=== PATIENT | female | born 1985 | race Caucasian/White ===

== ENCOUNTER 2019-08-14 10:28 | Outpatient (RCR) | payer BC, SELFPAY ==
--- NOTE | ~2019-08-14 | US_ITS ---
EXAMINATION: US OB follow up EXAM DATE: 08/14/2019 11:42 INDICATION: EDC tomorrow. Nonreactive stress test. Third trimester. TECHNIQUE: Pelvic obstetrical transabdominal sonogram was performed by a technologist. There are mu ltiple grayscale and Doppler images available for interpretation. There are no earlier studies of th is gestation for comparison. FINDINGS: There is a single fetus identified in vertex presentation with a heart rate of 163 beats pe r minute. The placenta is located in the posterior position. There is no sonographic evidence of ret roplacental hemorrhage identified. The amniotic fluid index is 9.7 centimeters, which is normal. BIOMETRIC DATA: Biparietal diameter (BPD): 9.5cm ----------------> 38 weeks 6 days. Head circumference (HC): 34.8 cm ----------------> 40 weeks 2 days. Abdominal circumference (AC): 31.8 cm ----------> 35 weeks 5 days. Femur length (FL): 7.5 cm --------------------------> 38 weeks 3 days. These measurements are discordant, HC/AC ratio is elevated. HC/AC ratio is 1.09 (The 5th -- 95th percentile range is 0.89-1.06. Estimated weight is 3169 g +/- 475 g. This is the 18th percentile when the currently reported clinical gestation age 39 weeks 6 days, clinical estimated date of delivery (EMMA-OPE) 08/15 is used. Fe maricruz estimated gestational age based on measurements from this exam is 38 weeks 2 days, with an estima ulises date of delivery (EMMA-AUA) 08/26. IMPRESSION: 1. Single fetus in vertex presentation with heart rate 163 beats per minute. 2. Estimated weight of 3169 grams, 18th percentile using the currently reported clinical gesta tion age of 39 weeks 6 days, EMMA(OPE) 2. 3. Normal amniotic fluid index 9.7 cm. 4. Elevated HC/AC ratio. Reviewed, dictated and finalized at location A. SCAPER IMPRESSION: 1. Single fetus in vertex presentation with heart rate 163 beats per minute. 2. Estimated weight of 3169 grams, 18th percentile using the currently r eported clinical gestation age of 39 weeks 6 days, EMMA(OPE) 2/4. 3. Normal amniotic fluid index 9.7 cm. 4. Elevated HC/AC ratio.
[2019-08-14 11:16] VITALS: BP 108/64; PULSE 71
--- NOTE | 2019-08-14 12:00 | PC.NURSE ---
Called Dr. Hensley with ultrasound report. Informed of reactive tracing with occasional contractions. November D/C home.
== END 2019-08-23 07:38 | disposition home or self-care (01) ==
LOC: ANHOBOP 10:28
PROVIDERS: PCP Family Medicine; Visit Provider Obstetrics & Gynecology
DX: O26.893 Other specified pregnancy related conditions, third trimester (principal); Z3A.39 39 weeks gestation of pregnancy
CPT/HCPCS: 59025; 76816

== ENCOUNTER 2019-08-22 17:57 | Inpatient (IN) | payer BC, SELFPAY ==
[2019-08-22 18:52] LABS: Basophils Percent Auto 0.5 % (0.2-1.2); Eosinophils Absolute Auto 0.1 K/mm3 (0-0.3); Eosinophils Percent Auto 1.3 % (0-4.4); Hematocrit 34.9 % (37.0-47.0); Hemoglobin 11.8 g/dL (12.0-15.0); Immature Granulocyte Absolute 0.01 K/mm3 (0.00-0.031); Immature Granulocyte Percent A 0.1 % (0-0.5); Lymphocytes Absolute Auto 2.24 K/mm3 (0.9-3.2); Lymphocytes Percent Auto 30.2 % (18.3-44.2); Mean Corpuscular HGB Conc 33.8 g/dl (32-36); Mean Corpuscular Hemoglobin 31.3 pg (26-34); Mean Corpuscular Volume 92.6 fl (80-100); Mean Platelet Volume 10.4 fl (7.4-10.4); Monocytes Absolute Auto 0.6 K/mm3 (0.1-0.6); Monocytes Percent Auto 7.4 % (2.6-8.5); Neutrophils Absolute Auto 4.5 K/mm3 (1.3-6.7); Neutrophils Percent Auto 60.5 % (45.5-73.1); Platelet Count Result 277 k/mm3 (150-375); Red Blood Count 3.77 M/mm3 (4.2-5.4); Red Cell Distribution Width 13.9 % (11.5-14.5); White Blood Count 7.4 K/mm3 (4.5-10.0)
[2019-08-22 19:00] VITALS: TEMP 37.1
[2019-08-22] MEDS: DINOPROSTONE 10 MG VAG INSERT VAGINAL (19:03)
[2019-08-22 19:04] VITALS: BP 122/58; PULSE 74
--- NOTE | 2019-08-22 19:04 | WPDANESEPP ---
Anes - Eval Pre Procedure Date/Time: 08/22/19 19:04 Pre Op Diagnosis: Induction of labor Patient Data Age: 34 Gender: F Height: Weight: Last Vital Signs Pulse 74 08/22/19 19:04 BP 122/58 L 08/22/19 19:04 Allergies Allergy/AdvReac Type Severity Reaction Status Date / Time amoxicillin Allergy Unknown Unknown Verified 07/17/19 16:04 cat dander Allergy Unknown Other Verified 07/17/19 16:03 dog dander Allergy Unknown Other Verified 07/17/19 16:03 SEAFOOD Allergy Unknown Unknown Uncoded 07/17/19 16:03 Home Medications Medication Instructions Recorded Confirmed Type PNV cmb#95-ferrous fumarate-FA 1 tablet PO DAILY 07/17/19 07/17/19 History [] Laboratory Tests 08/22/19 08/22/19 18:46 18:46 WBC 7.4 K/mm3 K/mm3 (4.5-10.0) RBC 3.77 M/mm3 L M/mm3 (4.2-5.4) Hgb 11.8 g/dL L g/dL (12.0-15.0) Hct 34.9 % L % (37.0-47.0) MCV 92.6 fl fl (80-100) MCH 31.3 pg pg (26-34) MCHC 33.8 g/dl g/dl (32-36) RDW 13.9 % % (11.5-14.5) Plt Count 277 k/mm3 k/mm3 (150-375) MPV 10.4 fl fl (7.4-10.4) Immature Gran % (Auto) 0.1 % % (0-0.5) Neut % (Auto) 60.5 % % (45.5-73.1) Lymph % (Auto) 30.2 % % (18.3-44.2) [place] % (Auto) 7.4 % % (2.6-8.5) Eos % (Auto) 1.3 % % (0-4.4) Baso % (Auto) 0.5 % % (0.2-1.2) Lymph # (Auto) 2.24 K/mm3 K/mm3 (0.9-3.2) [place] # (Auto) 0.6 K/mm3 K/mm3 (0.1-0.6) Eos # (Auto) 0.1 K/mm3 K/mm3 (0-0.3) Baso # (Auto) 0.0 K/mm3 K/mm3 (0.0-0.1) Abs Immat Gran (auto) 0.01 K/mm3 K/mm3 (0.00-0.031) Absolute Neuts (auto) 4.5 K/mm3 K/mm3 (1.3-6.7) Absolute Nucleated RBC 0.0 K/mm3 K/mm3 (0.0-0.012) Nucleated RBC % 0.0 % % (0.0-0.2) RPR Pending Patient hx anesthesia problems: none Family hx anesthesia problems: none [facility] Family History Family History (Updated 05/12/18 @ 09:02 by DOCTOR UNKNOWN) Father Diabetes mellitus Hypertension Family history of elevated blood lipids Other Carcinoma of colon Cerebrovascular accident Family history of cardiovascular disease Family history of hypercholesterolemia Family history of pancreatic cancer Social History Social History Smoking status: Never smoker Alcohol intake: current Substance use: never Gender identity (if verbalized by the patient): Female Spiritual care concerns: No Exam Day of Procedure 08/22/19 19:04
[2019-08-22 19:05] VITALS: BMI 38.3
[2019-08-22 19:31] VITALS: BP 115/73; PULSE 87
[2019-08-22 20:01] VITALS: BP 114/60; PULSE 70
[2019-08-22 20:31] VITALS: BP 113/59; PULSE 72
[2019-08-22 23:00] VITALS: TEMP 36.5
[2019-08-23] VITALS (166 sets, daily range): BP systolic 85–152; BP diastolic 44–105; PULSE 63–147; RESP 18; TEMP 36.4–37.2; O2SAT 95–100
[2019-08-23] MEDS: LACTATED RINGERS 1,000 ML 125 ML IV CONT (05:31)
[2019-08-23 07:58] LABS: Rapid Plasma Reagin Non-Reactive (NonReactive)
--- NOTE | 2019-08-23 16:16 | PM.OBPRVD ---
OB - Delivery Note Procedure Delivery date: 08/23/19 Procedure: Induction of labor with Induction method: AROM and per pitocin protocol Delivery monitor: external FHT and external uterine Episiotomy description: None Laceration description: Perineal - 2nd Degree Delivery repair: vicryl (3-0) Specimen: Yes (cord blood) Estimated blood loss (mL): 333 Anesthesia type: Epidural Disposition: PACU Complications: None Narrative: Laycie-qvu-qolw-old primigravida 41 weeks gestation who presented to the hospital for induction of labor. Oxytocin was administered intravenously. Amniotomy was performed with return of clear fluid. She received an epidural for pain control. Her labor progressed and her cervix dilated completely. She pushed with good effort and delivered the infant's head to the perineum, followed by the body. The nose and mouth were bulb suctioned. After a delay, the cord was clamped and cut. The was handed off the field. Cord blood was collected. The placenta delivered spontaneously and was grossly normal in appearance. The usual 3 vessel cord was noted. A second degree midline perineal laceration was sustained. This was reapproximated using 3 0 Vicryl in the usual layered fashion. Excellent hemostasis resulted as did excellent reapproximation of the normal anatomy. Needle and instrument counts were correct. The patient was taken to recovery room in stable condition. The went to the nursery in stable condition. I was present and scrubbed for the entire delivery. [place] Baby Date of : 08/23/19 Time of : 15:54 Weeks of gestation at delivery: 41 Weight (pounds): 7 Weight (ounces): 7 presentation: vertex position: Left Occiput Anterior Placenta delivery description: Spontaneous and Normal Configuration cord vessel description: 3 Vessels score one minute: 9 score five minutes: 9
--- NOTE | 2019-08-23 16:19 | PM.DS ---
DS: Diagnosis Admitting Diagnosis Admitting Diagnosis: IUP at 41 weeks Discharge Diagnosis (1) (normal spontaneous vaginal delivery): Code(s): O80 - Encounter for full-term uncomplicated delivery Status: Acute DS: Summary Time Spent with Patient Time attestation: Total time spent providing and/or coordinating discharge services: DS: Data Data Completed and Pending Labs on day of discharge: Labs from last 24 hours 08/22/19 08/22/19 08/22/19 18:46 18:46 18:46 WBC 7.4 RBC 3.77 L Hgb 11.8 L Hct 34.9 L MCV 92.6 MCH 31.3 MCHC 33.8 RDW 13.9 Plt Count 277 MPV 10.4 Immature Gran % (Auto) 0.1 Neut % (Auto) 60.5 Lymph % (Auto) 30.2 [place] % (Auto) 7.4 Eos % (Auto) 1.3 Baso % (Auto) 0.5 Lymph # (Auto) 2.24 [place] # (Auto) 0.6 Eos # (Auto) 0.1 Baso # (Auto) 0.0 Abs Immat Gran (auto) 0.01 Absolute Neuts (auto) 4.5 Absolute Nucleated RBC 0.0 Nucleated RBC % 0.0 RPR Non-reactive Blood Type A Positive Antibody Screen Negative Discharge Plan Discharge Attending physician on discharge: Guanako Hensley Discharging Clinician: Guanako Hensley Patient Disposition: Home, Self-Care Activity: pelvic rest Diet: regular Discharge Instructions: Call or return if temperature above 100.4? F, increased abdominal pain, increased vaginal bleeding or any new problems. Stand Alone Forms: General Discharge Information Follow-up/Referrals: Guanako Hensley MD [Physician] - (6 weeks) Discharge Medications: New ibuprofen 600 mg tablet 600 mg PO Q6H PRN (Reason: cramps) Qty: 30 RF: 0 ferrous sulfate 325 mg (65 mg iron) tablet 325 mg PO DAILY Qty: 30 RF: 0 No Action PNV cmb#95-ferrous fumarate-FA [] 28 mg iron- 800 mcg Tablet 1 tablet PO DAILY RF: 0 Date of admission: 08/22/19 17:57 Primary Care Provider: Brenden Junior Admitting Provider: Guanako Hensley Attending physician on admission: Guanako Hensley
[2019-08-23] MEDS: IBUPROFEN 600 MG TABLET PO (18:35)
[2019-08-24] MEDS: IBUPROFEN 600 MG TABLET PO ×3 (04:21→20:20)
[2019-08-24 05:18] LABS: Hematocrit 26.9 % (37.0-47.0); Hemoglobin 9.2 g/dL (12.0-15.0)
[2019-08-24 07:40] VITALS: BP 94/58; PULSE 82; RESP 18; TEMP 36.2
[2019-08-24] MEDS: POLYSACCHARIDE IRON COMPLEX 150 MG CAPSULE PO ×2 (09:05→17:01)
[2019-08-24] MEDS: DOCUSATE SODIUM 100 MG CAPSULE PO ×2 (09:05→17:01)
[2019-08-24] MEDS: MULTIVIT/MIN/PREN/FOL AC/IRON TABLET 1 TAB PO (09:06)
--- NOTE | 2019-08-24 11:00 | PC.NURSE ---
Upon entering mother has to breast, in football with shallow latch and chin to chest. Mother reports some discomfort during nursing. Reviewed positioning/alignment in football, holding breast in C hold and guided asymmetrical latch on. Demonstrated how to adjust latch more deeply while nursing. Infant was able to draw in more of areola, mother reporting less tenderness. Adjust head with chin up and straight in front of nipple. Infant nursed eagerly, with steady draws and occasional swallowing noted. Reviewed signs of a correct latch, effective nursing and suck swallow ratio. Infant was able to maintain latch with minimal discomfort to mother. Nipple care reviewed. Instructed mother to call out for RN assistance if she is unable to latch for feeding or she has discomfort with nursing. Instructed feeding should be initiated three hours from start of last feeding or if feeding cues are noted before. Mother voiced understanding of information shared. Reviewed feeding cues, frequencies, duration of feedings, feeding elimination flow sheet, and signs of adequate intake. Demonstrated stimulation techniques to wake infant for feeding. Assisted with to breast.
--- NOTE | 2019-08-24 11:49 | PM.OBPNVD ---
OB - PN: Subj Subjective Date/time seen: 08/24/19 11:49 Narrative: Pain OK. Would like circumcision for son. OB - PN: Obj Data Labs CBC & Chem 7: 08/24/19 04:53 Labs: Laboratory Results - last 24 hr 08/24/19 04:53 Hgb 9.2 L Hct 26.9 L OB - PN A/P Plan Comments: A: PPD#1, doing well. P: Routine care. Reviewed circumcision in detail. Plan home tomorrow. Exam Narrative: Exam Narrative: AVSS ABD soft, nontender, fundus firm EXT nontender
--- NOTE | 2019-08-24 14:05 | WPDANLDPN2 ---
Anes-Prog Note L&D Date/Time: 08/24/19 14:05 Comfortable throughout: labor and delivery Neuraxial method: epidural Epidural/Spinal procedure site: clean & non-tender Neuro status: Neuro function grossly intact. Cardiovascular status: normal Respiratory status: normal Airway patency: baseline Mental status: baseline Post-Op hydration status: normal Vital Signs: Last Vital Signs Temp 97.2 F L 08/24/19 07:40 Pulse 82 08/24/19 07:40 Resp 18 08/24/19 07:40 BP 94/58 L 08/24/19 07:40 Pulse Ox 98 08/23/19 15:49 I/O: Intake & Output 08/23/19 08/24/19 08/24/19 23:59 07:59 15:59 Intake Total 1500 Output Total 547 Balance 953 Post-procedural complaints: none Patient feedback: Patient satisfied with anesthetic care.
--- NOTE | 2019-08-24 14:40 | PC.NURSE ---
Mother called out for assist with waking for feeding. Demonstrated stimulation techniques to wake infant for feeding. easily awoken with feeding cues noted. Assisted with to breast. Reviewed positioning/alignment in cross cradle, holding breast in U hold and guided asymmetrical latch on. Infant was able to latch correctly. nursed eagerly with steady draws and frequent swallowing noted for short burst followed with long pausing. Advised to stimulate to keep awake and nursing effectively. Reviewed signs of a correct latch, effective nursing and suck swallow ratio. Infant was able to maintain latch without discomfort to mother. Nipple care reviewed. Suggested mother hold breast during entire feeding to assist with maintaining deep latch. Instructed mother to call out for RN assistance if she is unable to latch infant for feeding or she has discomfort with nursing. Instructed feeding should be initiated three hours from start of last feeding or if feeding cues are noted before. Mother voiced understanding of information shared. Assured mother infant sleepiness is normal for the first few days, requiring waking to feed and keeping awake during feedings.
[2019-08-24 20:15] VITALS: BP 102/66; PULSE 80; RESP 16; TEMP 36.8
[2019-08-25 07:40] VITALS: BP 104/61; PULSE 72; RESP 16; TEMP 37; O2SAT 100
[2019-08-25] MEDS: DOCUSATE SODIUM 100 MG CAPSULE PO (07:52)
[2019-08-25] MEDS: WITCH HAZEL 40 PADS 1 PAD TOPICAL (07:52)
[2019-08-25] MEDS: POLYSACCHARIDE IRON COMPLEX 150 MG CAPSULE PO (07:52)
[2019-08-25] MEDS: MULTIVIT/MIN/PREN/FOL AC/IRON TABLET 1 TAB PO (07:53)
--- NOTE | 2019-08-25 09:15 | PC.NURSE ---
Mother is able to independently latch infant with appropriate positioning/alignment. She reports slight nipple discomfort, is feeding as required and waking to feed if needed. Infant at breast upon entering, demonstrated how to adjust latch more deeply while feeding. Infant has had 9 effective feedings in the past 24 hours, and is currently meeting outcomes for weight, output, jaundice and feeding frequencies. Mother states she feels confident to continue effective at home. Reviewed transition to breast milk, signs of adequate intake, and engorgement/relief. Instructed to call ICP if intake/output less than required. Reviewed regular medications mother is taking. Information provided per Karin. Reviewed community resources on the [facility] website and in the Mom/Baby guide. Information on outpatient services provided. Mother has no further questions at this time.
[2019-08-25] MEDS: IBUPROFEN 600 MG TABLET PO (10:52)
[2019-08-28 10:50] VITALS: BP 120/76; PULSE 80; RESP 20; TEMP 36.9
== END 2019-08-25 12:42 | disposition home or self-care (01) | DRG 807 ==
LOC: ANHLDR 08-23 16:21 → ANHOB2 08-23 19:28
PROVIDERS: Admitting Provider Obstetrics & Gynecology; PCP Family Medicine; Visit Provider Obstetrics & Gynecology
DX: O48.0 Post-term pregnancy (principal); Z37.0 Single live birth; Z3A.41 41 weeks gestation of pregnancy; O70.1 Second degree perineal laceration during delivery
CPT/HCPCS: 36415; 85014; 85018; 85025; 86592; 86850; 86900; 86901; A9270; J2590; J2795; J3010; J7120

== ENCOUNTER 2021-11-04 23:50 | Inpatient (IN) | payer BC, SELFPAY ==
[2021-11-05] VITALS (107 sets, daily range): BP systolic 77–130; BP diastolic 38–94; PULSE 65–131; RESP 16–18; TEMP 36.6–37.1; O2SAT 98–100; BMI 38.7
[2021-11-05] MEDS: LACTATED RINGERS 1,000 ML 125 ML IV CONT ×2 (00:30→01:30)
--- NOTE | 2021-11-05 00:35 | LDADM ---
This patient, Natalie Wen, was admitted to Labor/Delivery/Recovery 103 on 11/04/21 at 23:50. Plans for labor, pain management and were discussed with patient. Patient/family oriented to hospital policies and general routines including ID bracelet, bed and alarms, visiting hours, pain management, procedures, bathroom and other care routines, personal items, smoking policy, room service/diet and guest tray routines, infant security routines, and visiting hours. Patient/Family are encouraged to report perceived risks to care and to ask questions if they do not understand what they are told or what they should do. See [facility] for further documentation.
[2021-11-05 00:37] LABS: Basophils Percent Auto 0.3 % (0.2-1.2); Eosinophils Absolute Auto 0.1 K/mm3 (0-0.3); Eosinophils Percent Auto 1.1 % (0-4.4); Hematocrit 33.5 % (37.0-47.0); Hemoglobin 11.8 g/dL (12.0-15.0); Immature Granulocyte Absolute 0.03 K/mm3 (0.00-0.031); Immature Granulocyte Percent A 0.3 % (0-0.5); Lymphocytes Absolute Auto 1.51 K/mm3 (0.9-3.2); Lymphocytes Percent Auto 16.2 % (18.3-44.2); Mean Corpuscular HGB Conc 35.2 g/dl (32-36); Mean Corpuscular Hemoglobin 31.9 pg (26-34); Mean Corpuscular Volume 90.5 fl (80-100); Mean Platelet Volume 9.8 fl (7.4-10.4); Monocytes Absolute Auto 0.5 K/mm3 (0.1-0.6); Neutrophils Absolute Auto 7.2 K/mm3 (1.3-6.7); Neutrophils Percent Auto 77.1 % (45.5-73.1); Platelet Count Result 263 k/mm3 (150-375); Red Cell Distribution Width 13.7 % (11.5-14.5); White Blood Count 9.3 K/mm3 (4.5-10.0)
--- NOTE | 2021-11-05 01:05 | WPDANESEPP ---
Anes - Eval Pre Procedure Procedure: labor epidural Date/Time: 11/05/21 01:05 Surgeon: lindy Pre Op Diagnosis: Contraction Patient Data Age: 36 Gender: F Height: 1.7 m Weight: 112 kg Allergies Allergy/AdvReac Type Severity Reaction Status Date / Time amoxicillin Allergy Unknown Unknown Verified 05/28/21 14:21 cat dander Allergy Unknown Other Verified 05/28/21 14:21 dog dander Allergy Unknown Other Verified 05/28/21 14:21 SEAFOOD Allergy Severe Anaphylactic Uncoded 10/08/21 13:47 Shock Home Medications Medication Instructions Recorded Confirmed Type PNV cmb#95-ferrous fumarate-FA 1 tablet PO DAILY 07/17/19 05/28/21 History [] fluticasone propionate 0.005 % 1 applic TOPICAL DAILY PRN #30 g 05/28/21 05/28/21 Rx topical ointment Laboratory Tests 11/05/21 11/05/21 11/05/21 00:22 00:22 00:22 WBC 9.3 K/mm3 K/mm3 (4.5-10.0) RBC 3.70 M/mm3 L M/mm3 (4.2-5.4) Hgb 11.8 g/dL L g/dL (12.0-15.0) Hct 33.5 % L % (37.0-47.0) MCV 90.5 fl fl (80-100) MCH 31.9 pg pg (26-34) MCHC 35.2 g/dl g/dl (32-36) RDW 13.7 % % (11.5-14.5) Plt Count 263 k/mm3 k/mm3 (150-375) MPV 9.8 fl fl (7.4-10.4) Immature Gran % (Auto) 0.3 % % (0-0.5) Neut % (Auto) 77.1 % H % (45.5-73.1) Lymph % (Auto) 16.2 % L % (18.3-44.2) Cross % (Auto) 5.0 % % (2.6-8.5) Eos % (Auto) 1.1 % % (0-4.4) Baso % (Auto) 0.3 % % (0.2-1.2) Lymph # (Auto) 1.51 K/mm3 K/mm3 (0.9-3.2) Cross # (Auto) 0.5 K/mm3 K/mm3 (0.1-0.6) Eos # (Auto) 0.1 K/mm3 K/mm3 (0-0.3) Baso # (Auto) 0.0 K/mm3 K/mm3 (0.0-0.1) Abs Immat Gran (auto) 0.03 K/mm3 K/mm3 (0.00-0.031) Absolute Neuts (auto) 7.2 K/mm3 H K/mm3 (1.3-6.7) Absolute Nucleated RBC 0.0 K/mm3 K/mm3 (0.0-0.012) Nucleated RBC % 0.0 % % (0.0-0.2) RPR Pending Blood Type A Positive Antibody Screen Pending Patient hx anesthesia problems: none Family hx anesthesia problems: none Results Review: All pre-operative results and documents have been reviewed as part of the pre-operative evaluation. [facility] Surgical History Surgical History (Updated 05/28/21 @ 14:27 by Oma Chen CMA) History of abdominoplasty History of cholecystectomy Family History Family History (Updated 10/08/21 @ 13:49 by Jose J Darden RN) Father Family history of elevated blood lipids Diabetes mellitus Hypertension Grandparent Carcinoma of colon Grandparent Family history of cardiovascular disease Grandparent Family history of pancreatic cancer Social History Social History Smoking status: Never smoker Second hand tobacco smoke exposure: No Alcohol intake: current Substance use: never Gender identity (if verbalized by the patient): Female Spiritual care concerns: No Exam Day of Procedure 11/05/21 01:05
--- NOTE | 2021-11-05 02:17 | WPDOBADMIT ---
Obstetrics - Admit Note Admission Note: record reviewed. Additions to the history and/or subsequent changes in the physical findings follow. 36 y/o at 39 5/7 weeks with contractions. Cervix 7 cm on admission. GBS neg. Now comfortable with epidural. AVSS NST reactive TOCO: contractions every 2-4 min ABD soft, nontender, gravid, vertex EXT nontender Cervix 7/80/-2. AROM with copious clear fluid. A: IUP at term with labor. P: Anticipate .
[2021-11-05] MEDS: PHENYLEPHRINE 1,000 MCG/10 ML SYRINGE 100 MCG IV PUSH ×2 (02:27→03:00)
[2021-11-05] MEDS: OXYTOCIN 30 UNITS/NS 500 ML 30 UNITS/500 ML BAG 999 UNITS IV CONT (05:15)
--- NOTE | 2021-11-05 05:47 | PM.OBPRVD ---
OB - Delivery Note Procedure Delivery date: 11/05/21 Procedure: Delivery monitor: External FHT and External Uterine Route of delivery: Laceration Description: Perineal - 2nd Degree Delivery repair: vicryl (3-0) Specimen: Yes (cord blood) Quantitative Blood Loss (ml): 385 Anesthesia type: Epidural Disposition: PACU Complications: None Narrative: 36 y/o at 39 5/7 weeks gestation who presented to the hospital with contractions. Labor was diagnosed. Amniotomy was performed with return of clear fluid. She received an epidural for pain control. Her labor progressed and her cervix dilated completely. She pushed with good effort and delivered the infant's head to the perineum, followed by the body. The nose and mouth were bulb suctioned. After a delay, the cord was clamped and cut. The was handed off the field. Cord blood was collected. The placenta delivered spontaneously and was grossly normal in appearance. The usual 3 vessel cord was noted. A second degree midline perineal laceration was sustained. This was reapproximated using 3 0 Vicryl in the usual layered fashion. Excellent hemostasis resulted as did excellent reapproximation of the normal anatomy. Needle and instrument counts were correct. The patient was taken to recovery room in stable condition. The infant went to the nursery in stable condition. I was present and scrubbed for the entire delivery. Baby Date of : 11/05/21 Time of : 05:12 Weeks of gestation at delivery: 39 gender: Male Weight (pounds): 8 Weight (ounces): 10 presentation: vertex position: Left Occiput Anterior Placenta delivery description: Spontaneous and Normal Configuration Cord Vessel Description: 3 Vessels and Delayed Cord Clamping score one minute: 8 score five minutes: 9
--- NOTE | 2021-11-05 05:49 | PM.OBDSVD ---
DS: Admitting Diagnosis Discharge Date 11/06/21 Admitting Diagnosis IUP at 39 5/7 weeks Labor DS: Discharge Diagnosis Discharge Diagnosis (1) (normal spontaneous vaginal delivery): Code(s): O80 - Encounter for full-term uncomplicated delivery Status: Acute OB - DS: Summary OB Procedures : None OB Procedures Intrapartum: Spontaneous Vag Delivery OB Procedures: : None DS: Data Data Completed and Pending Labs on day of discharge: Labs from last 24 hours 11/05/21 11/05/21 11/05/21 00:22 00:22 00:22 WBC 9.3 RBC 3.70 L Hgb 11.8 L Hct 33.5 L MCV 90.5 MCH 31.9 MCHC 35.2 RDW 13.7 Plt Count 263 MPV 9.8 Immature Gran % (Auto) 0.3 Neut % (Auto) 77.1 H Lymph % (Auto) 16.2 L [place] % (Auto) 5.0 Eos % (Auto) 1.1 Baso % (Auto) 0.3 Lymph # (Auto) 1.51 [place] # (Auto) 0.5 Eos # (Auto) 0.1 Baso # (Auto) 0.0 Abs Immat Gran (auto) 0.03 Absolute Neuts (auto) 7.2 H Absolute Nucleated RBC 0.0 Nucleated RBC % 0.0 RPR Pending Blood Type A Positive Antibody Screen Negative Discharge Plan Discharge Attending physician on discharge: Guanako Hensley Discharging Clinician: Guanako Hensley Patient Disposition: Home, Self-Care Activity: pelvic rest Diet: regular Discharge Instructions: Call or return if temperature above 100.4? F, increased abdominal pain, increased vaginal bleeding or any new problems. Stand Alone Forms: General Discharge Information Follow-up/Referrals: Guanako Hensley MD [Physician] - 6 Weeks Discharge Medications: New ibuprofen 600 mg tablet 600 mg PO Q6H PRN (Reason: cramps) Qty: 30 RF: 0 Continued fluticasone propionate 0.005 % ointment 1 applic topical DAILY PRN (Reason: skin irritation) Qty: 30 RF: 0 PNV cmb#95-ferrous fumarate-FA [] 28 mg iron- 800 mcg Tablet 1 tablet PO DAILY RF: 0 Date of admission: 11/04/21 23:50 Primary Care Provider: Brenden Junior Admitting Provider: Guanako Hensley Attending physician on admission: Guanako Hensley Condition: Stable
[2021-11-05] MEDS: OXYTOCIN 30 UNITS/NS 500 ML 30 UNITS/500 ML BAG 125 UNITS IV CONT (05:53)
[2021-11-05 08:34] LABS: Rapid Plasma Reagin Non-Reactive (NonReactive)
[2021-11-05] MEDS: BENZOCAINE 20% AER SPR (*SP) 56 GM CAN 1 SPRAY TOPICAL (09:30)
[2021-11-05] MEDS: MULTIVIT/MIN/PREN/FOL AC/IRON TABLET 1 TAB PO (09:30)
[2021-11-05] MEDS: IBUPROFEN 600 MG TABLET PO ×3 (09:30→22:53)
[2021-11-05] MEDS: WITCH HAZEL 40 PADS 1 PAD TOPICAL (09:30)
--- NOTE | 2021-11-05 10:15 | OBPPTRN ---
Patient transferred to post room #285 via wheelchair. Support person and baby present. Oriented to unit, room, information board, rooming in, admission packet and security measures. Patient verbalizes understanding.
--- NOTE | 2021-11-05 12:12 | PC.NURSE ---
On 11/05/21, the student, Martell Broderick, provided care and completed [facility] documentation on this patient. I have reviewed the student's documentation and agree with the findings.
--- NOTE | 2021-11-05 12:58 | PC.NURSE ---
1225 - 1240 Introductions were made, then consulted with patient to assess needs related to . Mother led the conversation with her experience feeding her infant so far and has infant latched to the right breast using football position. Mother works well with her . Encouraged understanding of the benefits of skin to skin (unwrapping and placing vertically on her chest), responsive feeding and how to watch for early feeding signs, frequency of feeding on demand about every 8-12 times in 24 hours (every 2-3 hours), milk production, duration of feeding, signs of adequate intake/output and how to record on the feeding sheet. RN adjusted closer to the breast and mother's body to keep the ear, shoulder, and hip in alignment. Infant was able to maintain latch without discomfort to mother but mother states her nipples are becoming sore. Baby self-detached and blister on the tip of the nipple was visualized. Infant moves tongue across the gum line but there is visual appearance of pulling in the middle of the tongue. Janet sales expert home theater assessed this morning was reported to RN and mother encouraged to have a conversation with the Doctor. Nipple care reviewed with optimal latch and good positioning. Resources used to facilitate learning were used with the visual handouts. Encouraged mother to call for a position and latch assessment at the next feeding. Mother voiced understanding of responsive feedings, stimulating with skin to skin, hand expressed colostrum, touch, talking to to encourage if it has been 2 -3 hours since the start of the last , to call if does not latch, a latch assessment or there is discomfort with . Reported to the primary RN.
--- NOTE | 2021-11-05 15:17 | PC.NURSE ---
1500 - Mother independently latched with appropriate positioning/alignment. She denies any nipple discomfort and is responsively . Infant is currently meeting outcomes for weight, output, jaundice and feeding frequencies of 8-12 times in 24 hours. Mother declines any additional assistance/education at this time. Mother is encouraged to call for assistance if her infant doesn?t latch or there is discomfort with latching. Mother voiced understanding of information shared and mom and baby guide reviewed for additional resource information . Reported to the primary RN.
[2021-11-05] MEDS: LANOLIN (LANSINOH) 7.5 GM CREAM 1 APPLIC TOPICAL (15:43)
[2021-11-05] MEDS: DOCUSATE SODIUM 100 MG CAPSULE PO (15:43)
[2021-11-06 05:00] VITALS: BP 117/70; PULSE 80; RESP 16; TEMP 36.6
[2021-11-06 05:45] LABS: Hematocrit 29.9 % (37.0-47.0)
[2021-11-06 08:15] VITALS: BP 103/61; PULSE 83; RESP 18; TEMP 37.5; O2SAT 99
[2021-11-06] MEDS: MULTIVIT/MIN/PREN/FOL AC/IRON TABLET 1 TAB PO (08:38)
[2021-11-06] MEDS: IBUPROFEN 600 MG TABLET PO (08:38)
[2021-11-06] MEDS: DOCUSATE SODIUM 100 MG CAPSULE PO (08:38)
--- NOTE | 2021-11-06 12:45 | WPDANLDPN2 ---
Anes-Prog Note L&D Date/Time: 11/06/21 12:45 Comfortable throughout: labor and delivery Neuraxial method: epidural Epidural/Spinal procedure site: clean & non-tender Neuro status: Neuro function grossly intact. Cardiovascular status: normal Respiratory status: normal Airway patency: baseline Mental status: baseline Post-Op hydration status: normal Vital Signs: Last Vital Signs Temp 37.5 C 11/06/21 08:15 Pulse 83 11/06/21 08:15 Resp 18 11/06/21 08:15 BP 103/61 11/06/21 08:15 Pulse Ox 99 11/06/21 08:15 Pain score (VAS): 0 I/O: Intake & Output 11/05/21 11/06/21 11/06/21 23:59 07:59 15:59 Intake Total 500 Balance 500 Post-procedural complaints: none Patient feedback: Patient satisfied with anesthetic care.
--- NOTE | 2021-11-06 15:03 | PC.NURSE ---
[id number] Mother led the conversation with her experience and plan to feed her so far and her ability to independently latch optimally without discomfort. Latch assessed for reassurance for mother before going home today. Reminded parents to use good handwashing technique to prevent infection. Mother is feeding appropriately for growth of infant and understands stimulating infant to eat if needed. Infant has had appropriate feedings in the last 24 hours meets the outcomes for weight, output and jaundice at this time. Mother states she is confident to continue effectively her at home or when to call for assistance and denies any additional assistance or education at this time. Reinforced understanding of milk production, transition of milk, signs of adequate intake, prevention/relief of engorgement, responsive after visualizing feeding cues, the different methods of stimulating to breastfeed 2-3 hours after the start of the last feeding, community resources, follow-up appt resource, and when to call a provider using the resource of the mom and baby guide. Mother voiced understanding of the education shared. Reported to the primary RN.
--- NOTE | 2021-11-06 17:02 | PM.OBPNVD ---
OB - PN: Subj Subjective Date/time seen: 11/06/21 17:02 Narrative: Pain OK. Would like to go home. Would like circumcision for son. OB - PN: Obj Data Labs CBC & Chem 7: 11/06/21 05:17 Labs: Laboratory Results - last 24 hr 11/06/21 05:17 Hgb 10.0 L Hct 29.9 L OB - PN A/P Plan Comments: A: PPD#1, doing well. P: Reviewed circ. Home to f/u 6 weeks. Exam Psych: Other: AVSS ABD soft, nontender, fundus firm EXT nontender
[2021-11-07 08:54] VITALS: BP 105/64; PULSE 86; RESP 16; TEMP 36.9; O2SAT 100
== END 2021-11-06 19:15 | disposition home or self-care (01) | DRG 807 ==
LOC: ANHLDR 11-05 05:50 → ANHOB2 11-05 10:25
PROVIDERS: Admitting Provider Obstetrics & Gynecology; PCP Family Medicine; Visit Provider Obstetrics & Gynecology
DX: O36.8330 Maternal care for abnormalities of the fetal heart rate or rhythm, third trimester, not applicable or unspecified (principal); Z37.0 Single live birth; Z3A.39 39 weeks gestation of pregnancy; O70.1 Second degree perineal laceration during delivery
CPT/HCPCS: 36415; 85014; 85018; 85025; 86592; 86850; 86900; 86901; A9270; J2370; J2590; J2795; J7120

== ENCOUNTER 2022-06-03 10:18 | Outpatient (CLI) | payer BC, SELFPAY ==
[2022-06-03 18:31] LABS: Basophils Absolute Auto 0.1 K/mm3 (0.0-0.1); Basophils Percent Auto 1.1 % (0.2-1.2); Eosinophils Absolute Auto 0.1 K/mm3 (0-0.3); Eosinophils Percent Auto 2.1 % (0-4.4); Hematocrit 39.7 % (37.0-47.0); Immature Granulocyte Absolute 0.01 K/mm3 (0.00-0.031); Immature Granulocyte Percent A 0.2 % (0-0.5); Lymphocytes Absolute Auto 1.76 K/mm3 (0.9-3.2); Lymphocytes Percent Auto 33.1 % (18.3-44.2); Mean Corpuscular HGB Conc 32.7 g/dl (32-36); Mean Corpuscular Hemoglobin 28.7 pg (26-34); Mean Corpuscular Volume 87.6 fl (80-100); Mean Platelet Volume 10.2 fl (7.4-10.4); Monocytes Absolute Auto 0.3 K/mm3 (0.1-0.6); Monocytes Percent Auto 6.2 % (2.6-8.5); Neutrophils Absolute Auto 3.1 K/mm3 (1.3-6.7); Neutrophils Percent Auto 57.3 % (45.5-73.1); Platelet Count Result 264 k/mm3 (150-375); Red Blood Count 4.53 M/mm3 (4.2-5.4); Red Cell Distribution Width 13.4 % (11.5-14.5); White Blood Count 5.3 K/mm3 (4.5-10.0)
[2022-06-03 18:40] LABS: Alanine Aminotransferase 16 U/L (6-35); Albumin Level 4.6 g/dL (3.5-5.1); Alkaline Phosphatase 58 U/L (38-126); Anion Gap 9 mmol/L (8-16); Aspartate Amino Transferase 31 U/L (14-36); Bilirubin,Total 0.6 mg/dL (0.2-1.3); Blood Urea Nitrogen 14 mg/dL (7-17); Calcium 9.2 mg/dL (8.4-10.2); Carbon Dioxide 29 mmol/L (22-30); Chloride 103 mmol/L (98-107); Cholesterol 161 mg/dL (0-200); Estimated Glomerular Filt Rate > 60; Glucose 79 mg/dL (65-110); HDL Direct 63 mg/dL; Potassium 4.6 mmol/L (3.4-5.0); Sodium 141 mmol/L (137-145); Triglycerides 37 mg/dL (<150)
[2022-06-03 18:51] LABS: LDL Cholesterol Direct 64 mg/dL
== END 2022-06-03 10:19 | disposition home or self-care (01) ==
LOC: ANHGOSHLAB 10:20
PROVIDERS: PCP Family Medicine; Visit Provider Family Medicine
DX: E78.5 Hyperlipidemia, unspecified (principal)
CPT/HCPCS: 36415; 80053; 80061; 85025

== ENCOUNTER 2024-03-17 15:28 | Outpatient (CLI) | payer OTHER, SELFPAY ==
[2024-03-17 18:41] LABS: Basophils Percent Auto 0.4 % (0.2-1.2); Eosinophils Absolute Auto 0.1 K/mm3 (0-0.3); Hematocrit 38.6 % (37.0-47.0); Hemoglobin 13.2 g/dL (12.0-15.0); Immature Granulocyte Absolute 0.01 K/mm3 (0.00-0.031); Immature Granulocyte Percent A 0.2 % (0-0.5); Lymphocytes Absolute Auto 1.64 K/mm3 (0.9-3.2); Mean Corpuscular HGB Conc 34.2 g/dl (32-36); Mean Corpuscular Hemoglobin 30.1 pg (26-34); Mean Corpuscular Volume 88.1 fl (80-100); Mean Platelet Volume 10.2 fl (7.4-10.4); Monocytes Absolute Auto 0.3 K/mm3 (0.1-0.6); Monocytes Percent Auto 5.7 % (2.6-8.5); Neutrophils Absolute Auto 2.5 K/mm3 (1.3-6.7); Neutrophils Percent Auto 55.7 % (45.5-73.1); Platelet Count Result 268 k/mm3 (150-375); Red Blood Count 4.38 M/mm3 (4.2-5.4); Red Cell Distribution Width 13.4 % (11.5-14.5); White Blood Count 4.6 K/mm3 (4.5-10.0)
[2024-03-17 18:44] LABS: Alanine Aminotransferase 16 U/L (6-35); Albumin Level 4.5 g/dL (3.5-5.1); Alkaline Phosphatase 47 U/L (38-126); Anion Gap 12 mmol/L (4-12); Aspartate Amino Transferase 24 U/L (14-36); Bilirubin,Total 0.5 mg/dL (0.2-1.3); Blood Urea Nitrogen 18 mg/dL (7-17); Calcium 9.3 mg/dL (8.4-10.2); Carbon Dioxide 28 mmol/L (22-30); Chloride 99 mmol/L (98-107); Estimated Glomerular Filt Rate > 60; Glucose 94 mg/dL (65-110); Sodium 139 mmol/L (137-145)
[2024-03-17 18:59] LABS: Free T4 Free Thyroxine 1.28 ng/mL (0.78-2.19); Vitamin D 25 Hydroxy 32.4 ng/mL
[2024-03-17 19:00] LABS: Hemoglobin A1C 4.8 % (<5.7)
[2024-03-18 06:49] LABS: FSH 5.9 mIU/mL; LH 10.7 mIU/mL
[2024-03-21 14:58] LABS: Testosterone Total 12 ng/dL (2-45)
[2024-03-24 22:18] LABS: Estradiol, Ultrasensitive 40 pg/mL
== END 2024-03-17 15:29 | disposition home or self-care (01) ==
LOC: ANHGOSHLAB 15:29
PROVIDERS: PCP Family Medicine; Visit Provider Nurse Practitioner Family
DX: L30.9 Dermatitis, unspecified (principal); E66.9 Obesity, unspecified; L40.9 Psoriasis, unspecified; R68.82 Decreased libido; E55.9 Vitamin D deficiency, unspecified; R73.01 Impaired fasting glucose
CPT/HCPCS: 36415; 80053; 82306; 82670; 83001; 83002; 83036; 84403; 84439; 84443; 85025